=== PATIENT | male | born 1985 | race Caucasian/White ===

== ENCOUNTER 2018-05-27 07:46 | Emergency (ER) | payer MEDICAID ==
--- NOTE | 2018-05-27 09:33 | Diagnostic Imaging Report ---
Right foot 3 views Indication: pain Comparison: none Findings: There is a mildly displaced oblique fracture involving the proximal shaft of the fifth metatarsal with surrounding soft tissue swelling. Mild degenerative changes are noted. Small distal Achilles spur is noted. An os navicularis is noted. Impression: Mildly displaced oblique fracture of the proximal shaft of the fifth metatarsal.
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
== END 2018-05-27 12:00 | disposition home or self-care (01) ==
LOC: ER 07:46
DX: S92.351A Displaced fracture of fifth metatarsal bone, right foot, initial encounter for closed fracture (principal); V02.99XA Pedestrian with other conveyance injured in collision with two- or three-wheeled motor vehicle, unspecified whether traffic or nontraffic accident, initial encounter; Y93.89 Activity, other specified; Y92.410 Unspecified street and highway as the place of occurrence of the external cause; Y99.8 Other external cause status
CPT/HCPCS: 99284; 96372; 29515; 73630; J1885; Z7502